=== PATIENT | male | born 1990 | race Caucasian/White ===

== ENCOUNTER → 2018-03-20 | Emergency (ER) | payer OTHER ==
[~2018-03-20] MED LIST: ACETAMINOPHEN 500 MG TABLET (FP) ONE; ACETAMINOPHEN 500 MG TABLET (FP) PO ONE; AMOX TR/POT CLAV 875MG/125MG TABLETS (FP) ONE; AMOX TR/POT CLAV 875MG/125MG TABLETS (FP) PO ONE
--- NOTE | 2018-03-20 19:52 | PDOC ---
History of Present Illness - History of Present Illness Initial Comments: 03/20/18 20:26 The patient is a 27 year old male with no significant past medical history who presents to the ER with a laceration to the palm of his right hand at 11:30PM today. 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 Patient removed several glass shards from his hand. Patient subsequently went to a local hospital, had a right hand x ray done there which showed a lot of glass. Patient was told he would need a surgeon to remove the glass, but that there was no one can see him until 7PM tomorrow. At that point, patient decided to present to this ER for treatment and further evaluation. The patient denies chest pain, shortness of breath, headache, and dizziness. Denies fever, chills, nausea, vomit, diarrhea, and constipation. Denies dysuria, frequency, urgency, and hematuria. Allergies: NKA Past surgical history: None reported. Social history: No reported alcohol, drug, or cigarette use. Adult ROS General: No fevers or chills, no weakness, no weight loss HEENT: No change in vision. No sore throat,. No ear pain CardioVascular: No chest pain or shortness of breath Respiratory:No cough, or wheezing. Gastrointestinal: no nausea, vomiting, diarrhea or constipation, No rectal bleeding Genitourinary: No dysuria, hematuria, or frequency Musculoskeletal: No joint or muscle pain or swelling Neurologic: No headache, vertigo, dizziness or loss of consciousness Psychiatric: nor depression Skin: (+) Right hand laceration. Endocrine: no increased thirst or abnormal weight change Allergic: no skin or latex allergy All other systems reviewed and normal Basic PE GENERAL: The patient is awake, alert, and fully oriented, in no acute distress. HEAD: Normal with no signs of trauma. EYES: Pupils equal, round and reactive to light, extraocular movements intact, sclera anicteric, conjunctiva clear. EXTREMITIES: Normal range of motion, no edema. NEUROLOGICAL: Normal speech, normal gait. PSYCH: Normal mood, normal affect. Skin: (+) 6 cm laceration on the mid palm of his right hand. No visible foreign bodies. Not actively bleeding. Neurovascularly intact. <Stephanie Vasques - Last Filed: 03/20/18 20:41> - General History Source: Patient Exam Limitations: No Limitations - History of Present Illness Initial Comments: 03/20/18 20:37 A portion of this note was documented by scribe services under my direction. I have reviewed the details of the note, within reason, and agree with the documentation. The case summary and management plan written by me. X-ray multiple foreign bodies both large and small embedded deep within the deep tissue of the hand Assessment and plan: This is a 27-year-old male with a large hand laceration with multiple glass foreign bodies in it. Discussed x-ray with my orthopedist to suggested the patient be transferred to [facility] for further evaluation and removal of the foreign bodies. [facility] was contacted and spoke with a Dr. Arredondo who has accepted patient for transfer to the [facility]. Patient will be transferred to the emergency department. <Nate Cantu I - Last Filed: 03/20/18 21:28> - General Chief Complaint: Injury Stated Complaint: RT HAND LACERATION Time Seen by Provider: 03/20/18 19:51 Past History <Stephanie Vasques - Last Filed: 03/20/18 20:41> - Past Medical History COPD: No Other medical history: DENIES - Suicide/Smoking/Psychosocial Hx Smoking History: Never smoked Have you smoked in the past 12 months: No Information on smoking cessation initiated: No Hx Alcohol Use: No <Nate Cantu I - Last Filed: 03/20/18 21:28> - Past Medical History Allergies/Adverse Reactions: Allergies Allergy/AdvReac Type Severity Reaction Status Date / Time No Known Allergies Allergy Verified 03/20/18 19:46 Home Medications: Ambulatory Orders NK [No Known Home Medication] 03/20/18 *Physical Exam - Vital Signs Last Vital Signs Temp Pulse Resp BP Pulse Ox 98.6 F 77 18 138/80 98 03/20/18 19:45 03/20/18 19:45 03/20/18 19:45 03/20/18 19:45 03/20/18 19:45 <Stephnaie Vasques - Last Filed: 03/20/18 20:41> - Vital Signs Last Vital Signs Temp Pulse Resp BP Pulse Ox 98.6 F 77 18 138/80 98 03/20/18 19:45 03/20/18 19:45 03/20/18 19:45 03/20/18 19:45 03/20/18 19:45 <Nate Cantu I - Last Filed: 03/20/18 21:28> *DC/Admit/Observation/Transfer - Attestations Scribe Attestion: 03/20/18 20:34 Documentation prepared by Stephanie Vasques, acting as medical safety director for Nate Cantu MD. <Stephanie Vasques - Last Filed: 03/20/18 20:41> <Nate Cantu I - Last Filed: 03/20/18 21:28> Diagnosis at time of Disposition: Foreign body (FB) in soft tissue Hand laceration Qualifiers: Encounter type: initial encounter Foreign body presence: with foreign body Laterality: right Qualified Code(s): S61.421A - Laceration with foreign body of right hand, initial encounter - Discharge Dispostion Disposition: TRANSFER ACUTE CARE/OTHER HOSP Condition at time of disposition: Stable
[2018-03-20 20:20] VITALS: BMI 32.1
[2018-03-20 21:04] VITALS: BP 121/72; PULSE 78; TEMP 98.4
== END | disposition short-term general hospital (02) ==
LOC: FER 19:45
DX: S61.421A Laceration with foreign body of right hand, initial encounter (principal); W25.XXXA Contact with sharp glass, initial encounter; Y93.89 Activity, other specified; Y92.89 Other specified places as the place of occurrence of the external cause; Y99.0 Civilian activity done for income or pay
CPT/HCPCS: 73130-TC-RT-FY; 99283-25

== ENCOUNTER 2022-06-12 06:50 | Emergency (ER) | payer OTHER ==
[2022-06-12 07:07] VITALS: BMI 32.3
[2022-06-12] MEDS ORDERED: ACETAMINOPHEN 500 MG TABLET (FP) ONE (07:22)
[2022-06-12] MEDS ORDERED: IBUPROFEN 400 MG TABLET (FP) PO ONE ×2 (07:22→07:24)
[2022-06-12] MEDS ORDERED: ACETAMINOPHEN 500 MG TABLET (FP) PO ONE (07:24)
[2022-06-12] MEDS ORDERED: SODIUM CHLORIDE 1,000 ML IV STA (08:26)
[2022-06-12 08:57] LABS: HEMATOCRIT 46.2 % (35.4-49); HEMOGLOBIN 15.6 G/dL (11.7-16.9); MCH 29.3 pg (25.7-33.7); MCHC 33.9 g/dl (32.0-35.9); MEAN CELL VOLUME 86.6 fl (80-96); MEAN PLT VOLUME 8.1 fl (7.5-11.1); PLATELET COUNT 197.8 10^3/uL (134-434); RBC 5.33 10^6/uL (4.00-5.60); RDW 13.5 % (11.9-15.9); WHITE BLOOD COUNT 10.8 10^3/uL (4.0-10.8)
[2022-06-12 09:05] LABS: ALBUMIN 4.7 g/dl (3.4-5.0); BILIRUBIN,TOTAL 0.6 mg/dl (0.2-1); CALCIUM 9.4 mg/dl (8.5-10)
[2022-06-12 09:36] LABS: PLATELET ESTIMATE ADEQUATE
[2022-06-12 10:08] VITALS: BP 132/84; TEMP 99.5
[2022-06-12 10:14] VITALS: PULSE 110; RESP 16
== END 2022-06-12 10:50 | disposition home or self-care (01) ==
LOC: FER 06:50
DX: J09.X2 Influenza due to identified novel influenza A virus with other respiratory manifestations (principal); R05.1 Acute cough; R50.9 Fever, unspecified; R09.81 Nasal congestion
CPT/HCPCS: 0241U-QW; 36415; 71046-TC-FY; 80053; 83605; 85027; 99284-25